=== PATIENT | female | born 2005 | race Two or more races ===

== ENCOUNTER 2024-11-04 20:25 | Emergency (ER) | payer OTHER, MEDICAID ==
[~2024-11-04] VITALS: Ht 172.7 cm; Wt 127.0 kg
[2024-11-04] MEDS ORDERED: ACET500T58 PO (20:56)
[2024-11-04] MEDS ORDERED: CIPR500T4 PO (20:56)
--- NOTE | 2024-11-04 20:57 | ED.PDOC ---
Foreign Body HPI Comments 19-YEAR-OLD FEMALE PRESENTS TO ER WITH COMPLAINTS OF FOREIGN BODY TO LEFT FOOT x 20 MINUTES. PATIENT REPORTS THAT SHE ACCIDENTALLY STEPPED ON THE REVERSE SIDE OF "A METAL SHOWER DRAIN" 20 MINUTES PRIOR TO ARRIVAL TO ER AND NOTES THAT 3 S HARP METAL PRONGS OF THE SHOWER DRAIN GOT EMBEDDED IN THE HEEL OF HER LEFT FOOT AT THAT TIME AND PRESENTS TO ER TODAY FOR FOREIGN BODY REMOVAL. SHE RATES HER CURRENT PAIN AN 8/10 TO HEAL OF LEFT FOOT WITHOUT RADIATION. DENIES USE OF MEDICATIONS FOR CURRENT SYMPTOMS AND STATES SHE IS UP-TO-DATE ON HER TETANUS SHOT. DENIES NUMBNESS/TINGLING, FALLS OR ANY FURTHER SYMPTOMS/COMPLAINTS Time Seen by MD: 20:27 Primary Care Provider: UNKNOWN History of Present Illness: Nurses Notes, Medications, Allergies Allergies: Coded Allergies: NO KNOWN ALLERGIES (Unverified , 11/04/24) Home Meds Active Scripts Acetaminophen (Acetaminophen) 500 Mg Tab, 500 MG PO Q4HPRN, #30 TAB 0 Refills Prov:EDU LEWIS 11/04/24 Ciprofloxacin Hcl (Ciprofloxacin Hcl) 500 Mg Tab, 1 TAB PO BID for 7 Days, #14 TAB 0 Refills Prov:EDU LEWIS 11/04/24 Information Source: Patient Mode of Arrival: Ambulatory Past Medical History PAST MEDICAL HISTORY: Denies Surgical History: Denies all surgeries [facility] [place] 11-04-24 Family History Family History: Unknown Social History Smoker: Non-Smoker Alcohol: Denies ETOH Use Drugs: Denies Drug Use Lives In: Home Constitutional: denies: chills, diaphoresis, fatigue, fever, malaise, sweats, weakness, others EENTM: denies: blurred vision, double vision, ear bleeding, ear discharge, ear drainage, ear pain, ear ringing, eye pain, eye redness, hearing loss, mouth pain, mouth swelling, nasal discharge, nose bleeding, nose congestion, nose pain, photophobia, tearing, throat pain, throat swelling, voice changes, others Respiratory: denies: cough, hemoptysis, orthopnea, SOB at rest, shortness of breath, SOB with excertion, stridor, wheezing, others Cardiovascular: denies: chest pain, dizzy spells, diaphoresis, Dyspnea on exertion, edema, irregular heart beat, left arm pain, lightheadedness, palpitations, PND, syncope, others Gastrointestinal: denies: abdomen distended, abdominal pain, blood streaked bowels, constipated, diarrhea, dysphagia, difficulty swallowing, hematemesis, melena, nausea, poor appetite, poor fluid intake, rectal bleeding, rectal pain, vomiting, others Genitourinary: denies: abnormal vagina bleeding, burning, dyspareunia, dysuria, flank pain, frequency, hematuria, incontinence, pain, , vagina discharge, urgency, others Neurological: denies: dizziness, fainting, headache, left sided numbness, left sided weakness, numbness, paresthesia, pre-existing deficit, right sided numbness, right sided weakness, seizure, speech problems, tingling, tremors, weakness, others Musculoskeletal: reports: others (As stated in HPI) Integumetry: reports: others (As stated in HPI) Allergic/Immunocompromised: denies: Difficulty Healing, Frequent Infections, Hives, Itching, others Hematologic/Lymphatic: denies: anemia, blood clots, easy bleeding, easy bruising, swollen glands, others Endocrine: denies: excessive hunger, excessive sweating, excessive thirst, excessive urination, flushing, intolerance to cold, intolerance to heat, unexplained weight gain, unexplained weight loss, others Psychiatric: denies: anxiety, bipolar disorder, depression, hopeless, panic disorder, schizophrenia, sleepless, suicidal, others Physical Exam General Appearance: No Apparent Distress, Obese HEENT: PERRL/EOMI Neck: Full Range of Motion, Non-Tender, Normal Respiratory: Chest Non-Tender, Lungs Clear, No Accessory Muscle Use, No Respiratory Distress, Normal Breath Sounds Cardiovascular: No Murmur, No Gallop, Regular Rate/Rhythm Breast Exam: Deferred Gastrointestinal: NOT DONE Genitalia: Deferred Pelvic: Deferred Rectal: Deferred Extremities: Normal capillary refill, Normal range of motion Neurologic: Alert, face worker II-XII nml as Tested, No Motor Deficits, Normal Affect, Normal Mood, No Sensory Deficits Cerebellar Function: Normal Reflexes: Normal Skin: Dry, Warm Peripheral Pulses: 2+ dorsalis pedis (R), 2+ dorsalis pedis (L) Lymphatic: No Adenopathy Was a procedure done? Was a procedure done?: Yes Sedation Sedation?: No Foreign Body Removal Foreign body in: Other (Left foot) Anesthetic: Other (Patient refused ) Procedure: Identified, Removed (All metal shower prongs successfully removed from left foot using hemostat. Minimal bleeding noted post foreign body removal. Patient tolerated well without complication. No other foreign body appreciated post foreign body removal) Informed consent obtained: Yes Risks/benefits/alt described: Yes Images 1 - 3 out of 6 metal shower prongs <2 cm in size noted imbedded in left foot. No bleeding noted. Patient able to move all toes of left foot. Pulses intact FB Differential Dx Differential Diagnosis: Abrasion, Laceration, Perforation X-Ray, Labs, Meds, VS Vital Signs Date Time Temp Pulse Resp B/P (MAP) Pulse Ox O2 Delivery O2 Flow Rate FiO2 11/04/24 21:11 98 15 97 Room Air 11/04/24 20:58 97.9 98 15 133/64 (87) 97 97.9 Current Medications Medications (Trade) Dose Ordered Sig/[place] Route Start Time Stop Time Status Last Admin Ceftriaxone Sodium (Rocephin) 1,000 mg ONCE ONCE IM 11/04/24 21:15 11/04/24 21:16 DC 11/04/24 21:24 PATIENT: ZEINA SCHNEIDER JACCT: [id number] UNIT: [id number] : 2005 LOC: ER ROOM / BED: / AGE / SEX: 19 / F ADM STATUS: REG ER SERVICE 06 ORDERING PHYSICIAN: EDU LEWIS PROCEDURE(s): LFOT2 - L FOOT 2 VIEW XRAY REASON: post FB removal ORDER NUMBER(s): [id number], ACCESSION NUMBER(s): [id number] CLINICAL INDICATION: post FB removal TECHNIQUE: 2 radiographic views of the left foot were obtained. Comparison: None FINDINGS/IMPRESSION: There is no evidence of acute fracture or dislocation. The visualized joint space is well maintained. The alignment is anatomical. No radiopaque foreign bodies visualized. ATED BY: CARLOS BLOUNT Jr., DO DICTATED DATE/TIME: 11/04/242138 SIGNED BY: CARLOS BLOUNT Jr., SIGNED DATE/TIME: 11/04/242138 CC: Rocephin 1 g IM ordered Wound cleaning performed at bedside Foreign body successfully removed from left foot without complication Post FB removal x-ray of left foot reviewed Patient neurovascularly intact and in no distress prior to discharge Wound care/cleaning discussed and advised Advised to follow up in two days for wound check Advised to follow up with PCP in 1-2 days Patient verbalized understanding and agreeable with current plan of care Advised to return to ER immediately if symptoms worsen Time of 1ST Reevaluation: 20:52 Reevaluation 1ST: N/A Patient Education/Counseling: Diagnosis, Treatment, Prognosis, Need For Follow Up Family Education/Counseling: Diagnosis, Treatment, Prognosis, Need For Follow Up Departure 1 Departure Time of Disposition: 21:12 Impression: Primary Impression: Foreign body in foot, left Qualified Codes: S90.852A - Superficial foreign body, left foot, initial encounter Disposition: HOME / SELF CARE / HOMELESS Condition: Stable e-Prescriptions Acetaminophen (Acetaminophen) 500 Mg Tab 500 MG PO Q4HPRN, #30 TAB 0 Refills Prov: EDU LEWIS 11/04/24 Ciprofloxacin Hcl (Ciprofloxacin Hcl) 500 Mg Tab 1 TAB PO BID for 7 Days, #14 TAB 0 Refills Prov: EDU LEWIS 11/04/24 Discharged With: Self Critical Care Note Critical Care Time?: No Stability Stability form required: No Heart Score Heart Score: Heart Score Response (Comments) Value History N/A 0 EKG N/A 0 Age N/A 0 Risk Factors N/A 0 Troponin N/A 0 Total 0 EDU LEWIS November 04, 2024 20:57
[2024-11-04] MEDS: cefTRIAXone SOD 1,000 MG VL IM ONE (21:24)
--- NOTE | 2024-11-04 21:42 | DVH ---
CLINICAL INDICATION: post FB removal TECHNIQUE: 2 radiographic views of the left foot were obtained. Comparison: None FINDINGS/IMPRESSION: There is no evidence of acute fracture or dislocation. The visualized joint space is well maintained. The alignment is anatomical. No radiopaque foreign bodies visualized.
[2024-11-04 22:03] VITALS: BP 133/64; PULSE 98; RESP 15; TEMP 97.4; O2SAT 97
== END 2024-11-04 22:02 | disposition home or self-care (01) ==
LOC: ER 20:25
DX: S90.852A Superficial foreign body, left foot, initial encounter (principal); W45.8XXA Other foreign body or object entering through skin, initial encounter; Y93.89 Activity, other specified; Y92.89 Other specified places as the place of occurrence of the external cause; Y99.8 Other external cause status
CPT/HCPCS: 73620; 96372; 99284; J0696